=== PATIENT | male | born 1955 | race Caucasian/White ===

== ENCOUNTER 2017-09-27 11:50 | Inpatient (IN) | payer OTHER ==
[2017-09-27] MEDS: morphine 2 MG INJ IV ×3 (12:50→20:34)
[2017-09-27] MEDS ORDERED: DOCUSATE SODIUM 100 MG CAP PO (13:30)
[2017-09-27] MEDS ORDERED: ACETAMINOPHEN 325 MG TAB PO (13:30)
[2017-09-27] MEDS ORDERED: BISACODYL 10 MG SUPP PR (13:30)
[2017-09-27] MEDS ORDERED: NACL 0.9% 3 ML SYG IV (13:30)
[2017-09-27] MEDS ORDERED: ACETAMINOPHEN 650 MG SUPP PR (13:30)
[2017-09-27] MEDS ORDERED: ONDANSETRON 4 MG INJ IV (13:30)
[2017-09-27] MEDS ORDERED: MAGNESIUM HYDROXIDE 30ML CUP PO (13:30)
[2017-09-27] MEDS: HYDROCODONE/APAP (5/325) TAB PO ×2 (17:12→23:13)
[2017-09-27] MEDS: CEFAZOLIN 2 GM/50 ML (PMX) 50 ML IVPB ×2 (17:13→23:05)
[2017-09-27] MEDS: HEPARIN 5,000 UNIT/0.5 ML VIAL SC (20:36)
[2017-09-27] MEDS: D5W-0.45 NACL + KCL 20 MEQ 1,000 ML IV (23:05)
[2017-09-28] MEDS: morphine 2 MG INJ IV ×3 (02:21→21:44)
[2017-09-28] MEDS: HYDROCODONE/APAP (5/325) TAB PO ×2 (04:47→18:14)
[2017-09-28 05:16] LABS: ADD MAN DIFF? NO
[2017-09-28 05:24] LABS: BASOPHILS % 0.4 % (0.0-2.0); EOSINOPHILS # 0.3 10^3/ul (0.0-0.5); EOSINOPHILS % 2.7 % (0.0-7.0); HEMATOCRIT 38.7 % (42.0-52.0); HEMOGLOBIN 13.3 g/dl (14.0-18.0); LYMPHOCYTES # 2.6 10^3/ul (0.8-2.9); LYMPHOCYTES % 26.7 % (15.0-51.0); MEAN CORPUSCULAR HEMOGLOBIN 30.5 pg (29.0-33.0); MEAN CORPUSCULAR HGB CONC 34.4 g/dl (32.0-37.0); MEAN CORPUSCULAR VOLUME 88.8 fl (82.0-101.0); MEAN PLATELET VOLUME 10.9 fl (7.4-10.4); MONOCYTE # 0.8 10^3/ul (0.3-0.9); MONOCYTES % 7.9 % (0.0-11.0); NEUTROPHIL # 6.1 10^3/ul (1.6-7.5); NEUTROPHILS % 61.9 % (39.0-77.0); PLATELET COUNT 196 10^3/UL (140-415); RED BLOOD COUNT 4.36 10^6/ul (4.70-6.10); RED CELL DISTRIBUTION WIDTH 14.5 % (11.5-14.5)
[2017-09-28 05:24] LABS: WHITE BLOOD COUNT 9.9 10^3/ul (4.8-10.8)
[2017-09-28] MEDS: CEFAZOLIN 2 GM/50 ML (PMX) 50 ML IVPB (05:41)
[2017-09-28] MEDS: PANTOPRAZOLE 40 MG INJ IV (05:41)
[2017-09-28 05:48] LABS: ALANINE AMINOTRANSFERASE 26 IU/L (13-69); ALBUMIN 3.6 g/dl (3.3-4.9); ALBUMIN/GLOBULIN RATIO 1.12; ALKALINE PHOSPHATASE 47 IU/L (42-121); ANION GAP 12 (8-16); ASPARTATE AMINO TRANSFERASE 21 IU/L (15-46); BILIRUBIN,INDIRECT 0.5 mg/dl (0-1.1); BILIRUBIN,TOTAL 0.5 mg/dl (0.2-1.3); BLOOD UREA NITROGEN 13 mg/dl (7-20); CALCIUM 9.3 mg/dl (8.4-10.2); CARBON DIOXIDE 28 mmol/L (21-31); CHLORIDE 111 mmol/L (97-110); CHOL/HDL RATIO 5.8 RATIO; CHOLESTEROL 233 mg/dl (100-200); CREATININE 0.83 mg/dl (0.61-1.24); GLUCOSE 116 mg/dl (70-220); HDL CHOLESTEROL 40 mg/dl (30-78); LDL CHOLESTEROL,CALCULATED 161 mg/dl; MAGNESIUM 1.9 mg/dl (1.7-2.5); PHOSPHORUS 3.4 mg/dl (2.5-4.9); POTASSIUM 4.6 mmol/L (3.5-5.1); SODIUM 146 mmol/L (135-144); TOTAL PROTEIN 6.8 g/dl (6.1-8.1); TRIGLYCERIDES 159 mg/dl (0-149)
[2017-09-28 06:05] LABS: FREE THYROXINE INDEX (Calc) 2.11 ug/ml (0.65-3.89); T4 (THYROXINE) 6.8 ug/dl (5.5-11.0)
[2017-09-28 06:18] LABS: THYROID STIMULATING HORMONE 0.508 MIU/L (0.465-4.680)
[2017-09-28] MEDS ORDERED: MIDAZOLAM 1 MG/ML 2 ML INJ (06:19)
[2017-09-28] MEDS ORDERED: FENTAnyl 50 MCG/ML VIAL (06:19)
[2017-09-28] MEDS ORDERED: ROCURONIUM 50 MG INJ (06:19)
[2017-09-28] MEDS ORDERED: PROPOFOL 20 ML (06:19)
[2017-09-28] MEDS ORDERED: LIDOCAINE 2% (SDV) 5 ML INJ (06:19)
[2017-09-28] MEDS ORDERED: DEXAMETHASONE 4 MG/ML 1 ML INJ (06:19)
[2017-09-28] MEDS ORDERED: NEOSTIGMINE 3 MG/3 ML SYRINGE (06:19)
[2017-09-28] MEDS ORDERED: GLYCOPYRROLATE 0.4 MG INJ (06:19)
[2017-09-28] MEDS ORDERED: ROPIVACAINE 0.5 % 30 ML VIAL (06:20)
[2017-09-28] MEDS ORDERED: ONDANSETRON 4 MG INJ (06:20)
[2017-09-28] MEDS ORDERED: MIDAZOLAM 1 MG/ML 2 ML INJ IV (06:30)
[2017-09-28] MEDS ORDERED: FENTAnyl 50 MCG/ML VIAL IV ×2 (06:30)
[2017-09-28] MEDS ORDERED: LABETALOL HCL 20MG INJ IV (06:30)
[2017-09-28] MEDS ORDERED: HYDROmorphONE (0.2 MG/ML) 10ML SYG IV ×2 (06:30)
[2017-09-28] MEDS ORDERED: morphine (1 MG/ML) 10ML SYRINGE IV ×3 (06:30)
[2017-09-28] MEDS ORDERED: ATROPINE 1 MG/10 ML SYRINGE IV (06:30)
[2017-09-28] MEDS ORDERED: DIPHENHYDRAMINE 50 MG INJ IV ×2 (06:30→10:30)
[2017-09-28] MEDS ORDERED: MEPERIDINE 25 MG INJ IV (06:30)
[2017-09-28] MEDS ORDERED: hydrALAzine 20 MG INJ IV ×2 (06:30→17:30)
[2017-09-28] MEDS ORDERED: EPHEDrine SULFATE 50 MG/5 ML SYG IV (06:30)
[2017-09-28] MEDS ORDERED: OXYCODONE/ACETAMINOPHEN (5/325) TAB PO ×2 (06:30)
[2017-09-28] MEDS ORDERED: CEFAZOLIN 1 GM INJ (07:00)
[2017-09-28] MEDS ORDERED: POLYMYXIN B 500000 UNIT INJ (07:15)
[2017-09-28] MEDS ORDERED: POLYMYXIN/BACITRACIN 1L IRRIG (07:15)
[2017-09-28 07:58] LABS: HEMOGLOBIN A1C 5.5 % (0-5.9)
[2017-09-28] MEDS ORDERED: LABETALOL HCL 20MG INJ (07:59)
[2017-09-28] MEDS ORDERED: hydrALAzine 20 MG INJ (08:07)
[2017-09-28] MEDS: POLYMYXIN B 500000 UNIT INJ IRR (08:25)
[2017-09-28] MEDS: BACITRACIN 50000 UNITS INJ (08:28)
[2017-09-28] MEDS: NICOTINE (21 MG/24 HR) PATCH TRANSDERM (09:00)
[2017-09-28] MEDS: HEPARIN 5,000 UNIT/0.5 ML VIAL SC ×2 (09:00→21:00)
[2017-09-28] MEDS ORDERED: NA PHOSPHATE/BIPHOS 133 ML ENEMA PR (10:30)
[2017-09-28] MEDS ORDERED: NACL 0.9% 3 ML SYG IV (10:30)
[2017-09-28] MEDS ORDERED: ONDANSETRON 4 MG INJ IV (10:30)
[2017-09-28] MEDS ORDERED: HYDROCODONE/APAP (5/325) TAB PO (10:30)
[2017-09-28] MEDS ORDERED: BISACODYL 10 MG SUPP PR (10:30)
[2017-09-28] MEDS ORDERED: MAGNESIUM HYDROXIDE 30ML CUP PO (10:30)
[2017-09-28] MEDS ORDERED: CEFAZOLIN 1 GM/50 ML (PMX) 50 ML IVPB (10:30)
[2017-09-28] MEDS ORDERED: TRIMETHOBENZAMIDE 100 MG/ML VIAL IM (10:30)
[2017-09-28 11:01] LABS: ADD MAN DIFF? NO
[2017-09-28] MEDS: HYDROmorphONE (0.2 MG/ML) 10ML SYG IV ×3 (11:01→11:51)
[2017-09-28] MEDS: ONDANSETRON 4 MG INJ IV (11:01)
[2017-09-28 11:12] LABS: BASOPHILS % 0.3 % (0.0-2.0); EOSINOPHILS % 0.2 % (0.0-7.0); HEMATOCRIT 36.2 % (42.0-52.0); HEMOGLOBIN 12.2 g/dl (14.0-18.0); MEAN CORPUSCULAR HEMOGLOBIN 30.4 pg (29.0-33.0); MEAN CORPUSCULAR HGB CONC 33.7 g/dl (32.0-37.0); MEAN CORPUSCULAR VOLUME 90.3 fl (82.0-101.0); MEAN PLATELET VOLUME 10.9 fl (7.4-10.4); MONOCYTE # 0.2 10^3/ul (0.3-0.9); MONOCYTES % 1.3 % (0.0-11.0); NEUTROPHIL # 10.7 10^3/ul (1.6-7.5); NEUTROPHILS % 89.6 % (39.0-77.0); PLATELET COUNT 186 10^3/UL (140-415); RED BLOOD COUNT 4.01 10^6/ul (4.70-6.10); RED CELL DISTRIBUTION WIDTH 14.4 % (11.5-14.5)
[2017-09-28 11:31] LABS: ANION GAP 11 (8-16); BLOOD UREA NITROGEN 12 mg/dl (7-20); CALCIUM 8.5 mg/dl (8.4-10.2); CARBON DIOXIDE 26 mmol/L (21-31); CHLORIDE 109 mmol/L (97-110); CREATININE 0.81 mg/dl (0.61-1.24); GLUCOSE 204 mg/dl (70-220); POTASSIUM 3.8 mmol/L (3.5-5.1); SODIUM 142 mmol/L (135-144)
[2017-09-28] MEDS ORDERED: VANCOMYCIN IV PER PHARMACY XX (12:30)
[2017-09-28] MEDS ORDERED: VANCOMYCIN 1.5 GM in SOD CHLORIDE 0.9% 250 ML IVPB (14:00)
[2017-09-28] MEDS: CEFAZOLIN 1 GM/50 ML (PMX) 50 ML IVPB (16:57)
[2017-09-28] MEDS: D5W-0.45 NACL + KCL 20 MEQ 1,000 ML IV ×2 (16:57→19:59)
[2017-09-28] MEDS: FERROUS FUMARATE (SR) TAB PO (21:44)
[2017-09-28] MEDS: SENNA/DOCUSATE NA (8.6MG/50MG) TAB PO (21:44)
[2017-09-29] MEDS: CEFAZOLIN 1 GM/50 ML (PMX) 50 ML IVPB ×2 (00:35→08:00)
[2017-09-29] MEDS: HYDROCODONE/APAP (5/325) TAB PO ×6 (01:50→23:28)
[2017-09-29] MEDS ORDERED: VANCOMYCIN 1 GM 250 ML IVPB (02:00)
[2017-09-29] MEDS: D5W-0.45 NACL + KCL 20 MEQ 1,000 ML IV ×2 (04:24→15:59)
[2017-09-29] MEDS: morphine 2 MG INJ IV ×2 (04:24→20:22)
[2017-09-29 05:01] LABS: ADD MAN DIFF? NO
[2017-09-29 05:11] LABS: WHITE BLOOD COUNT 12.9 10^3/ul (4.8-10.8)
[2017-09-29 05:11] LABS: BASOPHILS % 0.2 % (0.0-2.0); EOSINOPHILS % 0.2 % (0.0-7.0); HEMATOCRIT 35.2 % (42.0-52.0); HEMOGLOBIN 11.7 g/dl (14.0-18.0); LYMPHOCYTES # 2.3 10^3/ul (0.8-2.9); LYMPHOCYTES % 17.5 % (15.0-51.0); MEAN CORPUSCULAR HEMOGLOBIN 30.1 pg (29.0-33.0); MEAN CORPUSCULAR HGB CONC 33.2 g/dl (32.0-37.0); MEAN CORPUSCULAR VOLUME 90.5 fl (82.0-101.0); MEAN PLATELET VOLUME 11.3 fl (7.4-10.4); MONOCYTE # 1.3 10^3/ul (0.3-0.9); MONOCYTES % 9.8 % (0.0-11.0); NEUTROPHIL # 9.3 10^3/ul (1.6-7.5); PLATELET COUNT 198 10^3/UL (140-415); RED BLOOD COUNT 3.89 10^6/ul (4.70-6.10); RED CELL DISTRIBUTION WIDTH 14.6 % (11.5-14.5)
[2017-09-29] MEDS: PANTOPRAZOLE 40 MG INJ IV (05:24)
[2017-09-29 05:30] LABS: ANION GAP 12 (8-16); BLOOD UREA NITROGEN 11 mg/dl (7-20); CALCIUM 8.9 mg/dl (8.4-10.2); CARBON DIOXIDE 27 mmol/L (21-31); CHLORIDE 110 mmol/L (97-110); GLUCOSE 121 mg/dl (70-220); MAGNESIUM 1.8 mg/dl (1.7-2.5); PHOSPHORUS 3.6 mg/dl (2.5-4.9); SODIUM 145 mmol/L (135-144)
[2017-09-29] MEDS ORDERED: LEVOFLOXACIN 500 MG TAB GTB (06:00)
[2017-09-29 06:09] LABS: CREATININE 0.85 mg/dl (0.61-1.24)
[2017-09-29] MEDS ORDERED: ASPIRIN (EC) 325 MG TAB PO (09:00)
[2017-09-29] MEDS: FERROUS FUMARATE (SR) TAB PO ×2 (09:32→20:14)
[2017-09-29] MEDS: SENNA/DOCUSATE NA (8.6MG/50MG) TAB PO ×2 (09:32→20:14)
[2017-09-29] MEDS: NICOTINE (21 MG/24 HR) PATCH TRANSDERM (09:33)
[2017-09-29] MEDS: HEPARIN 5,000 UNIT/0.5 ML VIAL SC ×2 (09:36→20:16)
[2017-09-29] MEDS: LEVOFLOXACIN 500 MG TAB PO (11:12)
[2017-09-29] MEDS ORDERED: VANCOMYCIN IV PER PHARMACY XX (11:30)
[2017-09-29] MEDS: VANCOMYCIN 1.5 GM in SOD CHLORIDE 0.9% 250 ML IVPB (13:00)
[2017-09-29] MEDS: SERTRALINE 50 MG TAB PO (14:54)
[2017-09-29] MEDS: RISPERIDONE 1 MG TAB PO (20:14)
[2017-09-30] MEDS: morphine 2 MG INJ IV ×5 (02:24→22:41)
[2017-09-30] MEDS: D5W-0.45 NACL + KCL 20 MEQ 1,000 ML IV (02:27)
[2017-09-30] MEDS: VANCOMYCIN 1.25 GM in SOD CHLORIDE 0.9% 250 ML IVPB ×2 (02:27→14:00)
[2017-09-30] MEDS: HYDROCODONE/APAP (5/325) TAB PO ×4 (04:38→20:23)
[2017-09-30 05:39] LABS: ADD MAN DIFF? NO
[2017-09-30 05:48] LABS: BASOPHILS % 0.3 % (0.0-2.0); EOSINOPHILS # 0.2 10^3/ul (0.0-0.5); EOSINOPHILS % 1.5 % (0.0-7.0); HEMATOCRIT 30.7 % (42.0-52.0); HEMOGLOBIN 10.4 g/dl (14.0-18.0); LYMPHOCYTES # 2.8 10^3/ul (0.8-2.9); LYMPHOCYTES % 28.7 % (15.0-51.0); MEAN CORPUSCULAR HEMOGLOBIN 30.8 pg (29.0-33.0); MEAN CORPUSCULAR HGB CONC 33.9 g/dl (32.0-37.0); MEAN CORPUSCULAR VOLUME 90.8 fl (82.0-101.0); MEAN PLATELET VOLUME 11.3 fl (7.4-10.4); MONOCYTE # 0.9 10^3/ul (0.3-0.9); MONOCYTES % 9.1 % (0.0-11.0); NEUTROPHIL # 5.9 10^3/ul (1.6-7.5); PLATELET COUNT 189 10^3/UL (140-415); RED BLOOD COUNT 3.38 10^6/ul (4.70-6.10); RED CELL DISTRIBUTION WIDTH 14.5 % (11.5-14.5)
[2017-09-30 05:48] LABS: WHITE BLOOD COUNT 9.9 10^3/ul (4.8-10.8)
[2017-09-30] MEDS: PANTOPRAZOLE 40 MG INJ IV (05:58)
[2017-09-30] MEDS: LEVOFLOXACIN 500 MG TAB PO (05:58)
[2017-09-30 06:01] LABS: ANION GAP 8 (8-16); BLOOD UREA NITROGEN 10 mg/dl (7-20); CALCIUM 8.7 mg/dl (8.4-10.2); CARBON DIOXIDE 29 mmol/L (21-31); CHLORIDE 115 mmol/L (97-110); CREATININE 0.78 mg/dl (0.61-1.24); GLUCOSE 115 mg/dl (70-220); MAGNESIUM 1.9 mg/dl (1.7-2.5); PHOSPHORUS 2.4 mg/dl (2.5-4.9); POTASSIUM 3.8 mmol/L (3.5-5.1); SODIUM 148 mmol/L (135-144)
[2017-09-30] MEDS: FERROUS FUMARATE (SR) TAB PO ×2 (09:44→21:10)
[2017-09-30] MEDS: SENNA/DOCUSATE NA (8.6MG/50MG) TAB PO ×2 (09:44→21:11)
[2017-09-30] MEDS: NICOTINE (21 MG/24 HR) PATCH TRANSDERM (09:44)
[2017-09-30] MEDS: SERTRALINE 50 MG TAB PO (09:47)
[2017-09-30] MEDS: HEPARIN 5,000 UNIT/0.5 ML VIAL SC ×2 (09:50→21:12)
[2017-09-30] MEDS: MAGNESIUM HYDROXIDE 30ML CUP PO (21:10)
[2017-09-30] MEDS: RISPERIDONE 1 MG TAB PO (21:10)
[2017-10-01] MEDS: HYDROCODONE/APAP (5/325) TAB PO ×2 (01:32→07:36)
[2017-10-01 01:49] LABS: VANCOMYCIN,TROUGH 8.8 ug/ml (10.0-20.0)
[2017-10-01] MEDS: VANCOMYCIN 1.25 GM in SOD CHLORIDE 0.9% 250 ML IVPB (02:49)
[2017-10-01] MEDS: PANTOPRAZOLE (EC) 40 MG TAB PO (05:10)
[2017-10-01] MEDS: LEVOFLOXACIN 500 MG TAB PO (05:10)
[2017-10-01] MEDS: morphine 2 MG INJ IV ×2 (05:10→09:19)
[2017-10-01 06:09] LABS: ADD MAN DIFF? NO
[2017-10-01 06:15] LABS: BASOPHIL # 0.1 10^3/ul (0.0-0.1); BASOPHILS % 0.6 % (0.0-2.0); EOSINOPHILS # 0.3 10^3/ul (0.0-0.5); EOSINOPHILS % 2.8 % (0.0-7.0); HEMOGLOBIN 9.9 g/dl (14.0-18.0); MEAN CORPUSCULAR HEMOGLOBIN 30.8 pg (29.0-33.0); MEAN CORPUSCULAR HGB CONC 34.1 g/dl (32.0-37.0); MEAN CORPUSCULAR VOLUME 90.3 fl (82.0-101.0); MEAN PLATELET VOLUME 11.1 fl (7.4-10.4); MONOCYTE # 0.8 10^3/ul (0.3-0.9); MONOCYTES % 8.5 % (0.0-11.0); NEUTROPHILS % 54.8 % (39.0-77.0); PLATELET COUNT 207 10^3/UL (140-415); RED BLOOD COUNT 3.21 10^6/ul (4.70-6.10); RED CELL DISTRIBUTION WIDTH 14.2 % (11.5-14.5)
[2017-10-01 06:24] LABS: ANION GAP 10 (8-16); BLOOD UREA NITROGEN 12 mg/dl (7-20); CALCIUM 8.8 mg/dl (8.4-10.2); CARBON DIOXIDE 28 mmol/L (21-31); CHLORIDE 113 mmol/L (97-110); CREATININE 0.82 mg/dl (0.61-1.24); GLUCOSE 105 mg/dl (70-220); MAGNESIUM 2.1 mg/dl (1.7-2.5); POTASSIUM 3.9 mmol/L (3.5-5.1); SODIUM 147 mmol/L (135-144)
[2017-10-01] MEDS: FERROUS FUMARATE (SR) TAB PO ×2 (08:55→21:10)
[2017-10-01] MEDS: NICOTINE (21 MG/24 HR) PATCH TRANSDERM (08:55)
[2017-10-01] MEDS: SENNA/DOCUSATE NA (8.6MG/50MG) TAB PO ×2 (08:55→21:09)
[2017-10-01] MEDS: HEPARIN 5,000 UNIT/0.5 ML VIAL SC ×2 (08:58→21:15)
[2017-10-01] MEDS: SERTRALINE 50 MG TAB PO (10:02)
[2017-10-01] MEDS: OXYCODONE/ACETAMINOPHEN (10/325) TAB PO ×4 (11:41→23:39)
[2017-10-01] MEDS: VANCOMYCIN 1.5 GM in SOD CHLORIDE 0.9% 250 ML IVPB (14:56)
[2017-10-01] MEDS: MAGNESIUM HYDROXIDE 30ML CUP PO (21:00)
[2017-10-01] MEDS: RISPERIDONE 1 MG TAB PO (21:09)
[2017-10-02] MEDS: VANCOMYCIN 1.5 GM in SOD CHLORIDE 0.9% 250 ML IVPB (02:30)
[2017-10-02] MEDS: OXYCODONE/ACETAMINOPHEN (10/325) TAB PO ×3 (03:47→12:13)
[2017-10-02 05:17] LABS: ADD MAN DIFF? NO
[2017-10-02] MEDS: LEVOFLOXACIN 500 MG TAB PO (05:52)
[2017-10-02] MEDS: PANTOPRAZOLE (EC) 40 MG TAB PO (05:52)
[2017-10-02 06:10] LABS: MAGNESIUM 2.1 mg/dl (1.7-2.5)
[2017-10-02 06:17] LABS: ALBUMIN 3.3 g/dl (3.3-4.9); ANION GAP 12 (8-16); BLOOD UREA NITROGEN 13 mg/dl (7-20); CALCIUM 8.6 mg/dl (8.4-10.2); CARBON DIOXIDE 26 mmol/L (21-31); CHLORIDE 111 mmol/L (97-110); CREATININE 0.87 mg/dl (0.61-1.24); GLUCOSE 108 mg/dl (70-220); PHOSPHORUS 3.7 mg/dl (2.5-4.9); POTASSIUM 3.8 mmol/L (3.5-5.1); SODIUM 145 mmol/L (135-144)
[2017-10-02 06:41] LABS: WHITE BLOOD COUNT 9.7 10^3/ul (4.8-10.8)
[2017-10-02 06:41] LABS: BASOPHILS % 0.4 % (0.0-2.0); EOSINOPHILS # 0.4 10^3/ul (0.0-0.5); EOSINOPHILS % 3.8 % (0.0-7.0); HEMATOCRIT 29.7 % (42.0-52.0); HEMOGLOBIN 10.1 g/dl (14.0-18.0); LYMPHOCYTES # 2.5 10^3/ul (0.8-2.9); LYMPHOCYTES % 25.8 % (15.0-51.0); MEAN CORPUSCULAR HEMOGLOBIN 30.8 pg (29.0-33.0); MEAN CORPUSCULAR VOLUME 90.5 fl (82.0-101.0); MEAN PLATELET VOLUME 11.7 fl (7.4-10.4); MONOCYTE # 0.8 10^3/ul (0.3-0.9); MONOCYTES % 8.4 % (0.0-11.0); NEUTROPHIL # 5.9 10^3/ul (1.6-7.5); NEUTROPHILS % 61.1 % (39.0-77.0); PLATELET COUNT 172 10^3/UL (140-415); POSITIVE DIFF @See below; RED BLOOD COUNT 3.28 10^6/ul (4.70-6.10); RED CELL DISTRIBUTION WIDTH 13.8 % (11.5-14.5)
[2017-10-02] MEDS: NICOTINE (21 MG/24 HR) PATCH TRANSDERM (09:59)
[2017-10-02] MEDS: SENNA/DOCUSATE NA (8.6MG/50MG) TAB PO (10:00)
[2017-10-02] MEDS: SERTRALINE 50 MG TAB PO (10:00)
[2017-10-02] MEDS: FERROUS FUMARATE (SR) TAB PO (10:00)
[2017-10-02] MEDS: HEPARIN 5,000 UNIT/0.5 ML VIAL SC (10:03)
== END 2017-10-02 13:00 | disposition home health service (06) | DRG 494 ==
LOC: MS1 11:50
PROC: 0QSG06Z Reposition Right Tibia with Intramedullary Internal Fixation Device, Open Approach (ICD-10-PCS; principal; 2017-09-28 07:30)
PROC: 0QSG04Z Reposition Right Tibia with Internal Fixation Device, Open Approach (ICD-10-PCS; 2017-09-28 07:30)
DX: S82.391B Other fracture of lower end of right tibia, initial encounter for open fracture type I or II (principal); F32.9 Major depressive disorder, single episode, unspecified; F41.9 Anxiety disorder, unspecified; M19.90 Unspecified osteoarthritis, unspecified site; S82.431A Displaced oblique fracture of shaft of right fibula, initial encounter for closed fracture; F17.210 Nicotine dependence, cigarettes, uncomplicated; W01.0XXA Fall on same level from slipping, tripping and stumbling without subsequent striking against object, initial encounter; Y93.01 Activity, walking, marching and hiking; Y92.019 Unspecified place in single-family (private) house as the place of occurrence of the external cause; Y99.8 Other external cause status
CPT/HCPCS: 73590; 73600; 80048; 80053; 80061; 80069; 80202; 82306; 83036; 83735; 84100; 84436; 84443; 84479; 85025; 93005; 97110; 97116; 97161; 97165; 97535